=== PATIENT | female | born 1985 | race Caucasian/White ===

== ENCOUNTER 2020-08-05 09:02 | Outpatient (CLI) | payer OTHER, SELFPAY ==
--- NOTE | ~2020-08-05 | XR_ITS ---
EXAMINATION: XR chest 2V 08/05/2020 09:15 INDICATION: Cough PROCEDURE: 2 view chest COMPARISON: No prior studies for comparison. FINDINGS: The lungs are clear. The cardiomediastinal silhouette is within normal limits. There are no pleural effusions. There is no pneumothorax suspected. IMPRESSION: 1: NO ACUTE CARDIOPULMONARY DISEASE. Reviewed, dictated and finalized at location A.
--- NOTE | ~2020-08-05 | XR_ITS ---
EXAMINATION: XR hip BI wo pelvis EXAM DATE: 08/05/2020 09:14 INDICATION: M25.559 - Pain in unspecified hip, no injury. TECHNIQUE: Each hip imaged independently (separate right and also left hip) 'frog leg' and frontal p rojections for interpretation. There is no prior study for comparison. FINDINGS: No radiographic evidence of hip avascular necrosis. Hip and sacroiliac joints are unremar kable. There are no acute fractures or dislocations identified. There is no subcutaneous gas. The s oft tissue is unremarkable. There is IUD projecting over the central aspect of the pelvis. IMPRESSION: Unremarkable hips. Reviewed, dictated and finalized at location B. IMPRESSION: Unremarkable hips.
== END 2020-08-05 09:03 | disposition home or self-care (01) ==
PROVIDERS: PCP Internal Medicine; Visit Provider Nurse Practitioner
DX: R05 Cough (principal); M25.559 Pain in unspecified hip
CPT/HCPCS: 71046; 73521

== ENCOUNTER 2021-06-12 11:40 | Outpatient (CLI) | payer OTHER, SELFPAY ==
--- NOTE | ~2021-06-12 | XR_ITS ---
EXAMINATION: XR chest 2V DATE: 06/12/2021 12:02 INDICATION: Cough. TECHNIQUE: Frontal and lateral views of the chest were obtained. COMPARISON: Chest 2 views 08/05/2020 FINDINGS: The chest demonstrates clear lungs without pneumonia, pleural effusion, or pneumothorax. Th e heart size is normal. IMPRESSION: 1. No acute cardiopulmonary disease. Reviewed, dictated and finalized at location B.
== END 2021-06-12 11:41 | disposition home or self-care (01) ==
LOC: ANHIMG 11:49
PROVIDERS: PCP Internal Medicine; Visit Provider Nurse Practitioner
DX: R05.9 Cough, unspecified (principal)
CPT/HCPCS: 71046

== ENCOUNTER 2022-03-10 10:21 | Outpatient (CLI) | payer OTHER, SELFPAY ==
--- NOTE | ~2022-03-10 | US_ITS ---
Ultrasound of the right groin CLINICAL HISTORY: Lymphadenopathy TECHNIQUE: Sonographic imaging of the right groin was performed. FINDINGS: There is a somewhat prominent lymph node, with relatively thin cortex and prominent fatty h ilum, therefore not pathologic in appearance. No other abnormal mass lesion or pathologic appearing l ymph node identified. No fluid collection evident. IMPRESSION: No pathologic adenopathy evident. Prominent lymph node demonstrates normal fatty hilum and thin bala x. Reviewed, dictated and finalized at location M. PROJECT MANAGER IMPRESSION: No pathologic adenopathy evident. Prominent lymph node demonstrates normal fatt y hilum and thin cortex.
--- NOTE | ~2022-03-10 | US_ITS ---
Ultrasound of the left groin CLINICAL HISTORY: Lymphadenopathy TECHNIQUE: Sonographic imaging of the left groin was performed. FINDINGS: There are mildly prominent lymph nodes, with relatively thin cortex and prominent fatty hil a, therefore not pathologic in appearance. No other abnormal mass lesion or pathologic appearing lymp h node identified. No fluid collection evident. IMPRESSION: No pathologic adenopathy evident. Prominent lymph nodes demonstrates normal fatty hilum and thin markie ex. Reviewed, dictated and finalized at location M. FISHER IMPRESSION: No pathologic adenopathy evident. Prominent lymph nodes demonstrates normal fat ty hilum and thin cortex.
--- NOTE | ~2022-03-10 | US_ITS ---
Ultrasound of the right neck CLINICAL HISTORY: Right neck mass TECHNIQUE: Sonographic imaging was performed in the right neck at the area of palpable concern. FINDINGS: At the area of palpable concern, there is a 0.8 x 0.5 x 0.9 cm lymph node, with a fatty hil um present. No other sonographic abnormality seen at the region scanned. IMPRESSION: Minimally prominent lymph node which correlate to the palpable abnormality. This is not enlarged by s ize criteria, and maintains a normal fatty hilum, therefore this is likely a benign lymph node. Reviewed, dictated and finalized at location M. MARKER IMPRESSION: Minimally prominent lymph node which correlate to the palpable abnormality. Thi s is not enlarged by size criteria, and maintains a normal fatty hilum, therefo re this is likely a benign lymph node.
== END 2022-03-10 10:22 | disposition home or self-care (01) ==
PROVIDERS: PCP Internal Medicine; Visit Provider Nurse Practitioner
DX: R59.0 Localized enlarged lymph nodes (principal); R59.9 Enlarged lymph nodes, unspecified
CPT/HCPCS: 76536; 76882

== ENCOUNTER 2022-05-18 09:27 | Outpatient (CLI) | payer OTHER, SELFPAY ==
[2022-05-18 19:08] LABS: Alanine Aminotransferase 18 U/L (6-35); Albumin Level 4.4 g/dL (3.5-5.1); Alkaline Phosphatase 60 U/L (38-126); Anion Gap 10 mmol/L (8-16); Aspartate Amino Transferase 21 U/L (14-36); Basophils Absolute Auto 0.1 K/mm3 (0.0-0.1); Basophils Percent Auto 1.3 % (0.2-1.2); Bilirubin,Total 0.5 mg/dL (0.2-1.3); Blood Urea Nitrogen 9 mg/dL (7-17); Calcium 9.2 mg/dL (8.4-10.2); Carbon Dioxide 22 mmol/L (22-30); Chloride 106 mmol/L (98-107); Cholesterol 177 mg/dL (0-200); Eosinophils Absolute Auto 0.1 K/mm3 (0-0.3); Eosinophils Percent Auto 1.5 % (0-4.4); Estimated Glomerular Filt Rate > 60; Glucose 74 mg/dL (65-110); HDL Direct 51 mg/dL; Hematocrit 45.3 % (37.0-47.0); Hemoglobin 14.2 g/dL (12.0-15.0); Immature Granulocyte Absolute 0.02 K/mm3 (0.00-0.031); Immature Granulocyte Percent A 0.4 % (0-0.5); Lymphocytes Absolute Auto 2.01 K/mm3 (0.9-3.2); Lymphocytes Percent Auto 36.9 % (18.3-44.2); Mean Corpuscular HGB Conc 31.3 g/dl (32-36); Mean Corpuscular Hemoglobin 28.1 pg (26-34); Mean Corpuscular Volume 89.5 fl (80-100); Mean Platelet Volume 9.4 fl (7.4-10.4); Monocytes Absolute Auto 0.4 K/mm3 (0.1-0.6); Monocytes Percent Auto 7.5 % (2.6-8.5); Neutrophils Absolute Auto 2.9 K/mm3 (1.3-6.7); Neutrophils Percent Auto 52.4 % (45.5-73.1); Platelet Count Result 282 k/mm3 (150-375); Potassium 4.5 mmol/L (3.4-5.0); Red Blood Count 5.06 M/mm3 (4.2-5.4); Red Cell Distribution Width 14.2 % (11.5-14.5); Sodium 138 mmol/L (137-145); Triglycerides 59 mg/dL (<150); White Blood Count 5.4 K/mm3 (4.5-10.0)
[2022-05-18 19:19] LABS: LDL Cholesterol Direct 96 mg/dL
[2022-05-18 19:39] LABS: Erythrocyte Sedimentation Rate 5 mm/hr (0-20)
== END 2022-05-18 09:28 | disposition home or self-care (01) ==
LOC: ANHGOSHLAB 09:28
PROVIDERS: PCP Internal Medicine; Visit Provider Internal Medicine
DX: L40.50 Arthropathic psoriasis, unspecified (principal); L43.9 Lichen planus, unspecified; R59.0 Localized enlarged lymph nodes; Z13.220 Encounter for screening for lipoid disorders; Z13.29 Encounter for screening for other suspected endocrine disorder
CPT/HCPCS: 36415; 80053; 80061; 84443; 85025; 85652

== ENCOUNTER 2023-06-13 10:45 | Outpatient (CLI) | payer BC, OTHER, SELFPAY ==
[2023-06-13 11:52] LABS: Basophils Absolute Auto 0.1 K/mm3 (0.0-0.1); Basophils Percent Auto 0.8 % (0.2-1.2); Eosinophils Absolute Auto 0.1 K/mm3 (0-0.3); Eosinophils Percent Auto 1.4 % (0-4.4); Hematocrit 46.9 % (37.0-47.0); Hemoglobin 14.7 g/dL (12.0-15.0); Immature Granulocyte Absolute 0.01 K/mm3 (0.00-0.031); Immature Granulocyte Percent A 0.2 % (0-0.5); Lymphocytes Absolute Auto 1.92 K/mm3 (0.9-3.2); Lymphocytes Percent Auto 32.5 % (18.3-44.2); Mean Corpuscular HGB Conc 31.3 g/dl (32-36); Mean Corpuscular Hemoglobin 28.5 pg (26-34); Mean Corpuscular Volume 91.1 fl (80-100); Mean Platelet Volume 9.4 fl (7.4-10.4); Monocytes Absolute Auto 0.4 K/mm3 (0.1-0.6); Monocytes Percent Auto 6.8 % (2.6-8.5); Neutrophils Absolute Auto 3.5 K/mm3 (1.3-6.7); Neutrophils Percent Auto 58.3 % (45.5-73.1); Platelet Count Result 261 k/mm3 (150-375); Red Blood Count 5.15 M/mm3 (4.2-5.4); Red Cell Distribution Width 13.6 % (11.5-14.5); White Blood Count 5.9 K/mm3 (4.5-10.0)
[2023-06-13 12:02] LABS: Alanine Aminotransferase 18 U/L (6-35); Albumin Level 4.6 g/dL (3.5-5.1); Alkaline Phosphatase 61 U/L (38-126); Anion Gap 4 mmol/L (4-12); Aspartate Amino Transferase 45 U/L (14-36); Bilirubin,Total 0.5 mg/dL (0.2-1.3); Blood Urea Nitrogen 13 mg/dL (7-17); Calcium 9.7 mg/dL (8.4-10.2); Carbon Dioxide 28 mmol/L (22-30); Chloride 105 mmol/L (98-107); Cholesterol 199 mg/dL (0-200); Estimated Glomerular Filt Rate > 60; Glucose 91 mg/dL (65-110); HDL Direct 69 mg/dL; Potassium 4.3 mmol/L (3.4-5.0); Sodium 137 mmol/L (137-145); Triglycerides 75 mg/dL (<150)
[2023-06-13 12:13] LABS: LDL Cholesterol Direct 110 mg/dL
[2023-06-13 13:25] LABS: Vitamin D 25 Hydroxy 27.9 ng/mL
== END 2023-06-13 10:46 | disposition home or self-care (01) ==
PROVIDERS: PCP Internal Medicine; Visit Provider Nurse Practitioner
DX: E55.9 Vitamin D deficiency, unspecified (principal); Z13.220 Encounter for screening for lipoid disorders; Z13.29 Encounter for screening for other suspected endocrine disorder
CPT/HCPCS: 36415; 80053; 80061; 82306; 85025

== ENCOUNTER 2024-01-08 08:16 | Emergency (ER) | payer OTHER, BC, MEDICAID, SELFPAY ==
--- NOTE | ~2024-01-08 | XR_ITS ---
Right Knee Technique: AP, lateral, and sunrise views were obtained. Clinical History: Pain Findings: No fracture or dislocation is seen. Osseous alignment is anatomic. Joint spaces are preserv ed without degenerative or erosive change. Soft tissues are unremarkable. No joint effusion is seen. Impression: Unremarkable right knee radiographs. Reviewed, dictated and finalized at location . ORATIVE AIDE Impression: Unremarkable right knee radiographs.
--- NOTE | 2024-01-08 08:19 | ED.LOWEXIN ---
HPI - Extremity Injury (Lower) General Chief Complaint: Extremity Injury, Lower Stated Complaint: rt knee injury Time Seen by Provider: 01/08/24 08:18 Source: patient Mode of arrival: ambulatory Limitations: no limitations History of Present Illness HPI Narrative: Rebeca is a 38-year-old female patient presenting to the clinic today with complaints of right knee injury. She reports that she thinks she may have twisted her right knee while at work on Tuesday. She states she was pushing a heavy cart with packages on it and developed lateral and inferior pain to the right knee. Pain is worse when going down steps or walking down hill. Has been taking Aleve for the pain. Related Data Allergies Allergy/AdvReac Type Severity Reaction Status Date / Time No Known Allergies Allergy Verified 01/08/24 08:34 Review of Systems Review of Systems: Pertinent positives per HPI. Patient denies any fever, chills, rash, headache, visual changes, dizziness, cough, runny nose, sore throat, shortness of breath, chest pain, palpitations, nausea, vomiting, diarrhea, constipation, abdominal pain, or any urinary issues. [facility] Past Medical History Medical History Anxiety Arthralgia BRCA negative tested on 07/09/20 Dense breast tissue on mammogram Encounter for IUD insertion 06/23/15 Mirena insertion 08/04/20 Mirena removal/reinsertion Encounter for IUD removal 08/04/20 Mirena removal/reinsertion Osteoarthritis Psoriasis Psoriatic arthritis Screening mammogram, encounter for Tobacco abuse Viral warts Family History Family History Mother Breast cancer Lung cancer Brain cancer Other Breast cancer maternal aunt Grandparent Brain cancer Lung cancer Social History Social History Smoking packs per day: 0.5 Smoking cigarettes per day: 10.0 Smoking status: Current every day smoker Tobacco type: cigarettes Second hand tobacco smoke exposure: Yes Alcohol intake: never Substance use: current Substance use type: marijuana Other substance usage details: daily medical card Do You Feel Safe in your Home?: Yes Lack of Transportation: No Lack of Food: Never True Current Housing: I Have Housing Concerned About Future Housing: No Difficulty Paying Gas/Electric Bills: No Difficulty Paying for Meds: No Currently Unemployed: No Education: High School Diploma/GED Difficulty w/ Childcare or Family Care: No Living arrangements: with family Additional living arrangements comments: Occupation/Education: occupation Additional occupation/education comments: preloader at [employer] Gender identity (if verbalized by the patient): Female Sexual Orientation (if Verbalized by the Patient): Straight or Heterosexual Comments At the time of my signature, I reviewed and agree with the nursing past medical, surgical, social, and family history. There is no relevant family history pertinent to the patient complaint. Exam Narrative: General: Well-developed, well nourished, in no apparent distress Head: Normocephalic, atraumatic. Cardio: Regular rate and rhythm, s1 and s2 normal, no murmur appreciated. Resp: Clear to auscultation bilaterally, no rhonchi, rales, wheezing or rubs. Musculoskeletal: No deformity, mild swelling when compared to the left knee, tender to palpation over the right lateral and inferior knee, some pain with full flexion of the knee, grossly normal range of motion, no crepitus felt with flexion and extension of the knee, muscle strength strong and equal, peripheral pulse strong, no cyanosis, limping gait and station Course Course Emergency Course: Portions of this record may have been created with voice recognition software. Level of Care: Express Care Visit Vital Signs Vital signs: Vital Signs Temperature 37.1 C 01/08/24 08:36 Pulse Rate 82 01/08/24 08:36 Respiratory Rate 16 01/08/24 08:36 Blood Pressure 127/95 H 01/08/24 08:36 Pulse Oximetry 100 01/08/24 08:36 Oxygen Delivery Room Air 01/08/24 08:36 Temperature 37.1 C 01/08/24 08:36 Pulse Rate 82 01/08/24 08:36 Respiratory Rate 16 01/08/24 08:36 Blood Pressure 127/95 H 01/08/24 08:36 Pulse Oximetry 100 01/08/24 08:36 Oxygen Delivery Room Air 01/08/24 08:36 Vital signs reviewed MDM - Extremity Injury (Lower) MDM Narrative Medical decision making narrative: At the time of visit patient is resting comfortably on the exam table. Patient appears to be nontoxic. Diagnostics: X-ray the right knee was negative for any fracture or malalignment. Plan: I suspect patient has right knee sprain/acute knee pain. Prescription for Medrol Dosepak was sent to the pharmacy. Supportive measures were discussed with the patient and they voiced understanding discharge instructions and agrees to treatment plan. Return precautions reviewed Differential Diagnosis Differential diagnosis: Likely acute internal derangement of knee and other (Tibia fracture, femur fracture, lateral knee sprain, meniscus tear, osteoarthritis) Imaging Data Radiologist's impression: ITS Impressions Knee X-Ray 01/08/24 09:02 Impression: Unremarkable right knee radiographs. Discharge Plan Discharge Clinical Impression: Acute pain of right knee Knee LCL sprain Qualifiers: Encounter type: initial encounter Laterality: right Qualified Code(s): S83.421A - Sprain of lateral collateral ligament of right knee, initial encounter Patient Disposition: Home, Self-Care Condition: Stable Instructions: Antibiotic Form, Knee Sprain (ED), Knee Pain (ED) Additional Instructions: Rest, ice, elevate, and wear osmani wrap as directed Wear hinged knee brace while up walking Tylenol/motrin for pain as discussed. Gradually bear weight Take Medrol Dosepak as prescribed Follow up with your PCP if symptoms persist more than 1 week. Prescriptions: New methylprednisolone [Medrol (Saad)] 4 mg tablets,dose pack See Rx Instructions PO .COMPLEX Qty: 21 0RF Rx Instructions: orally per package directions Follow-up/Referrals: Vernon Avalos DO [Primary Care Provider] - Stand Alone Forms: Work/School Release IP Time of Disposition: 09:23 Quality NIHSS Nursing Documentation ED NIHSS nursing documentation: reviewed/agree
[2024-01-08 08:36] VITALS: BP 127/95; PULSE 82; RESP 16; TEMP 37.1; O2SAT 100
== END 2024-01-08 09:29 | disposition home or self-care (01) ==
PROVIDERS: Emergency Provider Nurse Practitioner Family; PCP Internal Medicine
DX: S83.421A Sprain of lateral collateral ligament of right knee, initial encounter (principal); X50.0XXA Overexertion from strenuous movement or load, initial encounter; Y99.0 Civilian activity done for income or pay; M19.90 Unspecified osteoarthritis, unspecified site; L40.50 Arthropathic psoriasis, unspecified; L40.9 Psoriasis, unspecified; F17.210 Nicotine dependence, cigarettes, uncomplicated; F12.90 Cannabis use, unspecified, uncomplicated
CPT/HCPCS: 73564; 99213; G0463

== ENCOUNTER 2024-05-16 15:03 | Outpatient (CLI) | payer BC, MEDICAID, SELFPAY ==
--- NOTE | ~2024-05-16 | XR_ITS ---
EXAMINATION: XR chest 2V 05/16/2024 15:12 INDICATION: Pleurodynia PROCEDURE: Two-view chest COMPARISON: 06/12/2021 FINDINGS: The lungs are clear. The cardiomediastinal silhouette is within normal limits. There are no pleural effusions. There is no pneumothorax suspected. IMPRESSION: 1: NO ACUTE CARDIOPULMONARY DISEASE. Reviewed, dictated and finalized at location A.
--- OUTSIDE RECORDS SUMMARY | 2024-05-16 16:24 | XMS_ITS | Encounter Summary ---
Author Organization [facility] Address [address] [place] [place] [address] Care Team Providers Care Slubber Machine Operator Name Role Phone Vernon Avalos DO Primary Care Provider [phone] Reason for Visit * Reason Onset Date Comments Medication Prior Auth Request 04/27/2018 Jonah self Encounter Details Date Type Department Care Team (Late st Contact Info) Description 04/27/2018 Telephone [facility] [address] [place] [address] Jade Bob Medication Prior Auth Request (Humira) Social History Tobacco Use Types Packs/Day Years Used Date Smoking Tobacco: Every Day Cigarettes 0.5 15 Smokeless Tobacco: Current Alcohol Use Standard Drinks/Week Comments No 0 (1 standard drink = 0.6 oz pur e alcohol) Sex and Gender Information Value Date Recorded Sex Assigned at Not on file Gender Identity Not on file Sexual Orientation Not on file documented as of this encounter Miscellaneous Notes * Telephone Encounter - Jade Bob - 05/24/2018 11:37 AM CDT PA was denied. The only approved antipsoriatic is acitretin. What would you like to do next? Jade Bob MA * Telephone Encounter - Jade Bob - 05/03/2018 1:53 PM CDT Fax received from [employer]. Order for Chong has been received. PA to be intiated. Jade Bob MA * Telephone Encounter - Jade Bob - 04/27/2018 4:56 PM CST Sent Chong in to intialize PA process. Will await response. Jade Bob MA ER LOADER documented in this encounter Plan of Treatment Not on file documented as of this encounter Visit Diagnoses Diagnosis Psoriasis- Primary Other psoriasis Psoriatic arthritis (HCC) Psoriatic arthropathy documented in this encounter Care Teams Slubber Machine Operator Relationship Specialty Start Date End Date Vernon Avalos DO PCP - General 03/27/18 documented as of this encounter
--- OUTSIDE RECORDS SUMMARY | 2024-05-16 16:24 | XMS_ITS | Encounter Summary ---
Author Organization [facility] Healthcare Address [address] [place] [address] Care Team Providers Care Production Control Supervisor Name Role Phone Vernon Avalos DO Unavailable [phone] Vernon Avalos DO Primary Care Provider [phone] Reason for Visit * Diagnostic Imaging (Routine) - Closed Specialty Diagnoses / Procedures Referred By Eliel t Referred To Contact Diagnoses Mass of breast, unspecified laterality Procedures Breast Imaging Screening Outside Reference Lisa Hinojosa NP [address] [facility] [place] [phone] [place] [address] Phone: tel: fax: Referral ID Status Reason Start Date Expiration Date Visits Re quested Visits Authorized [id number] Closed 01/24/2023 02/23/2024 1 1 Encounter Details Date Type Department Care Team (Late st Contact Info) Description 05/01/2018 Hospital Encounter [facility] [place] [address] Social History Tobacco Use Types Packs/Day Years Used Date Smoking Tobacco: Every Day Personal Safety Answer Date Recorded Getting School Help Needed Not on file 02/09 Comments Unknown Sex and Gender Information Value Date Recorded Sex Assigned at Not on file Legal Sex Female 11:53 AM MACHINIST SUPERVISOR Gender Identity Not on file Sexual [...] CDT) Impressions [facility] - 01/24/2023 1:35 PM MACHINIST SUPERVISOR These images are for Reference purposes only and have not been reviewed by [facility] Radiology. There will be no report generated by a [facility] Radiologist. Narrative [facility] - 01/24/2023 1:35 PM MACHINIST SUPERVISOR EXAMINATION: Images For Reference Purposes Only us Lisa Hinojosa PRESS SETUP OPERATOR IMG MAMMO PROCEDURES Final Result [facility] documented in this encounter Visit Diagnoses Not on filedocumented in this encounter Care Teams Production Control Supervisor Relationship Specialty Start Date End Date Vernon Avalos DO PCP - General 07/20/16 Vernon Avalos DO 06/22/16 documented as of this encounter
--- OUTSIDE RECORDS SUMMARY | 2024-05-16 16:24 | XMS_ITS | Clinical Summary ---
Author Organization [facility] Address [address] [place] [address] Phone Care Team Providers Care Enrobing Machine Corder Name Role Phone JacquelineVernon lazaro Joon Primary Care Provider Social History Tobacco Use Types Packs/Day Years Used Date Smoking Tobacco: Never Assessed Comments Unknown Sex and Gender Information Value Date Recorded Sex Assigned at Not on file Legal Sex Female 11:35 PM CDT Gender Identity Not on file Sexual Orientation Not on file Plan of Treatment Health Maintenance Due Date Last Done Comments TdaP Immunization 1983 Hepatitis B Immunization (1 of 3 - 19+ 3-dose series) 08/08/2002 Pap Smear 08/08/2004 Cervical Cancer Screening (CCS) 08/08/2013 HPV/Cotest 08/08/2013 Discussion re Starting/Frequ ency of Mammograms 2023 Influenza Immunization (#1) 2023 SARS-COV-2 Immunization ( season) 2023 Respiratory Syncytial Virus (RSV) Immunization (Adult) (1 - 1-dose 75+ series) 08/08/2058 Hepatitis C Virus (HCV) Screening Completed 018 Meningococcal Immunization (ACWY) Aged Out No longer eligible based on patient's age to complete this topic Pneumococcal Immunization Combined Aged Out No longer eligible based on patient's age to complete this topic Rotavirus Immunization Aged Out No lo nger eligible based on patient's age to complete this topic Procedures Procedure Name Priority Date/Time Associated Diagnosis Comments HEPATITIS C ANTIBODY Routine 03/18/2017 11:15 AM MANAGER LOGISTIC Multiple joint pain from Last 3 Months or Most Recently Relevant to Health Maintenance Results * HEPATITIS C ANTIBODY (03/18/2017 11:15 AM MANAGER LOGISTIC) hepatitis C antibody 0.12 <1 S/CO 03/18/2017 9:33 PM MANAGER LOGISTIC [facility] Comment: Signal/Cutoff ratio < 0.79 is Nondetected Signal/Cutoff ratio 0.80-0.99 is Grayzone Signal/Cutoff ratio > 0.99 is Detected Supplemental assays are recommended if signal/cutoff ratio is >/=1.00. Signal/cutoff ratio result >/= 5.00 is 97% predictive of positivity for recombinant immunoblot assay (RIBA) and will be reported to the [place] Department of Public Health as required. Blood specimen (specimen) Venipuncture / Unknown 03/18/2017 11:15 AM MANAGER LOGISTIC 03/18/2017 1:27 PM MANAGER LOGISTIC us Vernon Avalos DO CHEMISTRY ORDERABLES Fi nal Result [facility] [address] [place] [address], [place] from Last 3 Months or Most Recently Relevant to Health Maintenance Care Teams Enrobing Machine Corder Relationship Specialty Start Date End Date Vernon Avalos DO [address] [facility] [place] [address] PCP - General Internal Medicine 03/18/17
--- OUTSIDE RECORDS SUMMARY | 2024-05-16 16:24 | XMS_ITS | Clinical Summary ---
Author Organization [facility] Address [address] [facility] [place] [address] Care Team Providers Care Analyst Competitive Intelligence Name Role Phone Vernon Avalos DO Primary Care Provider [phone] Source Comments [facility],non-owned Affiliates and Associated Physician Practices is amultiple site organization consisting of ambulatory clinics and hospital sitesin [place], [place], [place] and [place]. This disclosure is being madepursuant to the Care Everywhere program and may not contain all information available regarding this patient. Last updated 17.[facility] Allergies No known active allergies Medications * Be aware that medications may not be up to date on this document. Alwaysverify current medications with the patient. Medication Sig Dispensed Refills Start Date End Date Status betamethasone dipropionate (DIPROSONE) 0.05 % ointmentIndications :Psoriasis vulgaris Apply to trunk/extremities 1-2 times daily. 30 DS. 45 g 11 04/11/2018 Active selenium sulfide (SELSUN) 2.5 % lotionIndications:P soriasis vulgaris Wash into scalp and allow to sit for 3 minutes before rinsing. 30 DS. 120 mL 11 04/11/2018 Active Additional Information Patient not taking.Reported on 08/17/2018 folic acid (FOLVITE) 1 MG tabletIndications:O ther psoriasis Take 1 tablet by mouth once daily Take 1 daily except the day you take methotrexate 90 tablet 3 08/17/2018 Active methotrexate 2.5 MG tabletIndications:P soriasis Take 6 tablets by mouth every 7 days Reasons: Psoriasis 24 tablet 2 08/17/2018 Active Active Problems Problem Noted Date Diagnosed Date Abnormal quad screen 12/03/2014 Encounter for supervision of other normal pregna ncy 12/03/2014 Overview (12/29/2014): Family History Medical History Relation Name Comments Psoriasis Maternal Grandfather Psoriasis Mother Relation Name Status Comments Maternal Grandfather Mother Social History Tobacco Use Types Packs/Day Years Used Date Smoking Tobacco: Every Day Cigarettes 0.5 15 Smokeless Tobacco: Current Tobacco Cessation:Ready to Q uit: Yes Alcohol Use Standard Drinks/Week Comments No 0 (1 standard drink = 0.6 oz pur e alcohol) Sex and Gender Information Value Date Recorded Sex Assigned at Not on file Gender Identity Not on file Sexual Orientation Not on file Plan of Treatment Health Maintenance Due Date Last Done Comments LIPID TESTING 1983 MAMMOGRAM 1983 PAP SMEAR 1983 HIV SCREENING 08/08/1998 DTAP/TDAP/TD VACCINES (1 - Tdap) 08/08/2002 HEPATITIS B VACCINE (1 of 3 - 19+ 3-dose series) 08/08/2002 COVID-19 VACCINE (2023-2 5 season) 2023 INFLUENZA VACCINE (#1) 2023 DEPRESSION SCREENING 02/22/2024 ZOSTER VACCINE (1 of 2) 08/08/2033 HEPATITIS C SCREENING Completed 05/25/2018 HIB VACCINE Aged Out No longer eligi ble based on patient's age to complete this topic HPV VACCINE Aged Out No longer eligi ble based on patient's age to complete this topic MENINGOCOCCAL (Group B) VACC INE SHARED DECISION-MAKING Aged Out No longer eligibl e based on patient's age to complete this topic MENINGOCOCCAL GROUPS A/C/Y/W VACCINE Aged Out No longer eligible b ased on patient's age to complete this topic PNEUMOCOCCAL VACCINE Aged Out No long er eligible based on patient's age to complete this topic Procedures Procedure Name Priority Date/Time Associated Diagnosis Comments HEPATITIS C AB W/RFLX TO HCV RNA QN PCR 05/25/2018 1:01 PM CDT from Last 3 Months or Most Recently Relevant to Health Maintenance Results * HEPATITIS C AB W/RFLX TO HCV RNA QN PCR (05/25/2018 1:01 PM CDT) Hepatitis C Antibody NON-REACTI VE NON-REACT [facility] Signal to Cut-Off 0.03 <1.00 [facility] Comment: HCV antibody was non-reactive. There is no laboratory evidence of HCV infection. In most cases, no further action is required. However, if recent HCV exposure is suspected, a test for HCV RNA (test code 15392) is suggested. For additional information please refer to http://education.Twined/faq/RDN14z4 (This link is being provided for informational/ educational purposes only.) Test Performed at: [facility] [id number] [place] [address] ROMEO WAGNER DO,MPH 05/25/2018 1:01 PM CDT 05/25/2018 1:01 PM CDT Berta Giron MD LAB - CHEMISTRY OR DERABLES [facility] [address] [place] [address] from Last 3 Months or Most Recently Relevant to Health Maintenance Care Teams Analyst Competitive Intelligence Relationship Specialty Start Date End Date Vernon Avalos DO [facility] - General 03/27/18
--- OUTSIDE RECORDS SUMMARY | 2024-05-16 16:24 | XMS_ITS | Clinical Summary ---
Author Organization [facility] Address [address] [place] [address] Care Team Providers Care Employment Supervisor Name Role Phone Vernon Avalos DO Unavailable [phone] Vernon Avalos DO Primary Care Provider [phone] Kenneth Pineda MD Unavailable [phone] Allergies No known active allergies Medications No known medications Active Problems No known active problems Surgical History Surgery Date Site/Laterality Comments BREAST BIOPSY 04/04/2023 Right Medical History Medical History Date Comments Psoriasis vulgaris Plaque psoria sis - (Added by Conv) Family History Medical History Relation Name Comments Cancer Maternal Grandmother Ping Duran Breast cancer Mother Madison Almeida Family hist ory of malignant neoplasm of breast - (Added by Conv) Cancer Mother Madison Almeida Cancer Mother's Sister Kathrine Clinton Relation Name Status Comments Maternal Grandmother Ping Duran Mother Madison Almeida Mother's Sister Kathrine Clinton Social History Tobacco Use Types Packs/Day Years Used Date Smoking Tobacco: Every Day Tobacco Cessation:Ready to Q uit: Not Asked; Counseling Given: Not Answered Personal Safety Answer Date Recorded Getting School Help Needed Not on file 02/09 Comments Unknown Sex and Gender Information Value Date Recorded Sex Assigned at Not on file Legal Sex Female 11:53 AM MECHANICAL UNIT REPAIRER Gender Identity Not on file Sexual Orientation Not on file Obstetrics History Last Filed Vital Signs Vital Sign Reading Time Taken Comments Blood Pressure 113/75 04/12/2017 8:03 AM MECHANICAL UNIT REPAIRER Pulse 85 04/12/2017 8:03 AM MECHANICAL UNIT REPAIRER Temperature - - Respiratory Rate - - Oxygen Saturation - - Inhaled Oxygen Concentration - - Weight 56.2 kg (123 lb 14.4 oz) 11/02/2023 9:59 AM CDT Height 152.4 cm (5') 11/02/2023 9:59 AM CDT Body Mass Index 24.2 11/02/2023 9:59 AM CDT Plan of Treatment Health Maintenance Due Date Last Done Comments Cervical Cancer Screening 1983 Depression Screening 1983 Hepatitis C Screening 1983 DTaP/Tdap/Td Vaccine (1 - Tdap) 08/08/1994 Varicella Vaccines (1 of 2 - 13+ 2-dose series) 08/08/1996 Hepatitis B Screening 08/08/2001 Regular Well Visit/Exam 18-64 08/08/2001 Pneumococcal vaccine <65 (1 of 2 - PCV) 08/08/2002 Covid-19 Vaccine (3 - 2023-2 5 season) 2023 09/24/2020, 09/03/2020 Influenza Vaccine (#1) 2023 03/03/2016 Breast Cancer Screening-Mammogram 11/01/2024 11/02/2023 HPV Vaccines Aged Out No longer eligi ble based on patient's age to complete this topic Medical Devices Implanted Type Area Gripper Attacher Device Identifier Shelf Expiration Date Model / Serial / Lot Bard Peripheral Vascular Ultraclip Bard 17ga 10cm 2 Trigger Permanent Ultrasound [id number] - [id number] Implanted:Qty: 1 on 04/04/2023 at [facility] [employer] [id number] / / Procedures Procedure Name Priority Date/Time Associated Diagnosis Comments SCREENING MAMMOGRAM BILATERAL W LAUREL Schedule Routine, Read Routine (OP Routine) 11/02/2023 11:54 AM CDT Mass of breast, unspecified laterality Screening mammogram for breast cancer from Last 3 Months or Most Recently Relevant to Health Maintenance Results * Screening Mammogram Bilateral W [place] (11/02/2023 11:54 AM CDT) Anatomical Region Laterality Modality Breast Bilateral Mammography Narrative 11/02/2023 12:36 PM CDT Mammogram Technique: Bilateral Digital Breast Tomosynthesis, Bilateral C-view 2D Screening mammogram. Views obtained: bilateral craniocaudal and bilateral mediolateral oblique. Computer Aided Detection was performed. Mammogram Findings: No prior imaging studies are available for comparison. The breasts are extremely dense, which lowers the sensitivity of mammography. There is no suspicious abnormality in either breast. Impression: There is no mammographic evidence of malignancy. Annual screening mammography is recommended. Consider breast MRI for supplemental screening given the patient's extremely dense breast tissue. OVERALL FINAL ASSESSMENT: BI-RADS CATEGORY 1: Negative. Procedure Note Nicole Valle MD - 11/02/2023 Mammogram Technique: Bilateral Digital Breast Tomosynthesis, Bilateral C-view 2D Screening mammogram. Views obtained: bilateral craniocaudal and bilateral mediolateral oblique. Computer Aided Detection was performed. Mammogram Findings: No prior imaging studies are available for comparison. The breasts are extremely dense, which lowers the sensitivity of mammography. There is no suspicious abnormality in either breast. Impression: There is no mammographic evidence of malignancy. Annual screening mammography is recommended. Consider breast MRI for supplemental screening given the patient's extremely dense breasttissue. OVERALL FINAL ASSESSMENT: BI-RADS CATEGORY 1: Negative. Lisa Hinojosa NP IMG MAMMO PROCEDURES Final Result from Last 3 Months or Most Recently Relevant to [place] [address] [employer] [facility] IDPA Care Teams Employment Supervisor Relationship Specialty Start Date End Date Vernon Avalos DO PCP - General 07/20/16 Vernon Avalos DO 06/22/16 Kenneth Pineda MD [address] [place] [address] Referring Physician Obstetrics and Gynecology 12/20/22
--- OUTSIDE RECORDS SUMMARY | 2024-05-16 16:24 | XMS_ITS | Encounter Summary ---
Author Organization [facility] Healthcare Address [address] [place] [address] Care Team Providers Care Supervisor Inspection Department Name Role Phone Vernon Avalos DO Unavailable [phone] Vernon Avalos DO Primary Care Provider [phone] Reason for Visit * Diagnostic Imaging (Routine) - Closed Specialty Diagnoses / Procedures Referred By Eliel t Referred To Contact Diagnoses Mass of breast, unspecified laterality Procedures Breast Imaging Screening Outside Reference Lisa Hinojosa NP [address] [facility] [id number] [place] [address] Phone: tel: fax: Referral ID Status Reason Start Date Expiration Date Visits Re quested Visits Authorized [id number] Closed 01/24/2023 02/23/2024 1 1 Encounter Details Date Type Department Care Team (Late st Contact Info) Description 08/01/2019 Hospital Encounter [facility] [place] [address] Social History Tobacco Use Types Packs/Day Years Used Date Smoking Tobacco: Every Day Personal Safety Answer Date Recorded Getting School Help Needed Not on file 02/09 Comments Unknown Sex and Gender Information Value Date Recorded Sex Assigned at Not on file Legal Sex Female 11:53 AM TUNNEL HEADING SUPERVISOR Gender Identity Not on file Sexual [...] CDT) Impressions [facility] - 01/24/2023 1:39 PM TUNNEL HEADING SUPERVISOR These images are for Reference purposes only and have not been reviewed by [facility]iology. There will be no report generated by a [facility] Radiologist. Narrative [facility] - 01/24/2023 1:39 PM TUNNEL HEADING SUPERVISOR EXAMINATION: Images For Reference Purposes Only us Lisa Hinojosa NP IMG MAMMO PROCEDURES Final Result [facility] documented in this encounter Visit Diagnoses Not on filedocumented in this encounter Care Teams Supervisor Inspection Department Relationship Specialty Start Date End Date Vernon Avalos DO PCP - General 07/20/16 Vernon Avalos DO 06/22/16 documented as of this encounter
--- OUTSIDE RECORDS SUMMARY | 2024-05-16 16:24 | XMS_ITS | Referral Summary ---
Author Organization [facility] Healthcare Address [address] [place] [address] Care Team Providers Care Traveling Sales Representative Name Role Phone Vernon Avalos DO Unavailable [phone] Vernon Avalos DO Primary Care Provider [phone] Kenneth Pineda MD Unavailable [phone] Allergies No known active allergies Medications No known medications Active Problems No known active problems Social History Tobacco Use Types Packs/Day Years Used Date Smoking Tobacco: Every Day Tobacco Cessation:Ready to Q uit: Not Asked; Counseling Given: Not Answered Personal Safety Answer Date Recorded Getting School Help Needed Not on file 02/09 Comments Unknown Sex and Gender Information Value Date Recorded Sex Assigned at Not on file Legal Sex Female 11:53 AM CUSTOMER SUPPORT ANALYST Gender Identity Not on file Sexual Orientation Not on file Last Filed Vital Signs Vital Sign Reading Time Taken Comments Blood Pressure 113/75 04/12/2017 8:03 AM CUSTOMER SUPPORT ANALYST Pulse 85 04/12/2017 8:03 AM CUSTOMER SUPPORT ANALYST Temperature - - Respiratory Rate - - Oxygen Saturation - - Inhaled Oxygen Concentration - - Weight 56.2 kg (123 lb 14.4 oz) 11/02/2023 9:59 AM CDT Height 152.4 cm (5') 11/02/2023 9:59 AM CDT Body Mass Index 24.2 11/02/2023 9:59 AM CDT Plan of Treatment Not on file Medical Devices Implanted Type Area Cable Weaver Device Identifier Shelf Expiration Date Model / Serial / Lot Bard Peripheral Vascular Ultraclip Bard 17ga 10cm 2 Trigger Permanent Ultrasound [id number] - [id number] Implanted:Qty: 1 on 04/04/2023 at [facility] [employer] [id number] / / Procedures Procedure Name Priority Date/Time [...] Most Recently Relevant to Health Maintenance Insurance [place] ID[place] [employer] [place], [place] Care Teams Traveling Sales Representative Relationship Specialty Start Date End Date Vernon Avalos DO PCP - General 07/20/16 Vernon Avalos DO 06/22/16 Kenneth Pineda MD [address] [facility] [address] [place] [address] Referring Physician Obstetrics and Gynecology 12/20/22
--- OUTSIDE RECORDS SUMMARY | 2024-05-16 16:24 | XMS_ITS | Encounter Summary ---
Author Organization [facility] Address [address] [facility] [place] [address] Care Team Providers Care Vessel Operator Name Role Phone Vernon Avalos DO Primary Care Provider [phone] Reason for Visit * Reason Onset Date Comments Medication Problem 09/05/2018 Encounter Details Date Type Department Care Team (Late st Contact Info) Description 09/05/2018 Telephone [facility] [address] [place] [address] Edis Patrick MD [address] [place] [address] Medication Problem Social History Tobacco Use Types Packs/Day Years [...] encounter Miscellaneous Notes * Telephone Encounter - Edis Patrick MD - 09/06/2018 12:07 PM CDT Spoke w/ pt. Having joint pain, MCCLURE, fatigue x 1 month. I discussed that her joint pain is likely 2/2 PsA (as discussed by Dr. Samano at last visit). Her other symptoms may be MTX related, but her labsin July were reassuring. Advised she f/u with rheum as scheduled. Cont MTX as I am reluctant to decrease the dose while she is having such severe joint pain. If other symptoms not tolerable would like her to call me. F/u with me in 1-2 months. Likely will need biologic therapy. Edis Patrick M.D. PGY-4 dermatology resident * Telephone Encounter - Edis Patrick MD - 09/05/2018 4:07 PM CDT Left VM for patient. Will try again later. Edis Patrick M.D. PGY-4 dermatology resident * Telephone Encounter - Myra Mo - 09/05/2018 9:06 AM CDT Pt called and states that the methotrexate 2.5 MG tablet is making her joints hurt and making her tired and not feel normal and is wondering if she can start to taper off this med. Please advise. documented in this encounter Plan of Treatment Not on file documented as of this encounter Visit Diagnoses Not on filedocumented in this encounter Care Teams Vessel Operator Relationship Specialty Start Date End Date Vernon Avalos DO PCP - General 03/27/18 documented as of this encounter
== END 2024-05-16 15:04 | disposition home or self-care (01) ==
LOC: ANHASCIMG 15:03
PROVIDERS: PCP Internal Medicine; Visit Provider Nurse Practitioner
DX: R07.81 Pleurodynia (principal)
CPT/HCPCS: 71046

== ENCOUNTER 2024-12-24 10:06 | Outpatient (CLI) | payer BC, SELFPAY ==
--- OUTSIDE RECORDS SUMMARY | 2018-04-30 23:00 | XMS_ITS | Encounter Summary ---
Author Organization [facility] Healthcare Address [address] [place] [address] Care Team Providers Care Functional Mental Disability Teacher Name Role Phone Vernon Avalos DO Unavailable [phone] Vernon Avalos DO Primary Care Provider Reason for Visit * Diagnostic Imaging (Routine) - Closed Specialty Diagnoses / Procedures Referred By Eliel mcgregor Referred To Contact Diagnoses Mass of breast, unspecified laterality Procedures Breast Imaging Screening Outside Reference Lisa Hinojosa NP [address] [facility] [place] [phone] [place] [address] Phone: tel: fax: Referral ID Status Reason Start Date Expiration Date Visits Re quested Visits Authorized [id number] Closed 01/24/2023 02/23/2024 1 1 Encounter Details Date Type Department Care Team (Late st Contact Info) Description 05/01/2018 Hospital Encounter [facility] [address] [place] [id number] Social History Tobacco Use Types Packs/Day Years Used Date Smoking Tobacco: Every Day Comments No Sex and Gender Information Value Date Recorded Sex Assigned at Not on file Legal Sex Female 11:53 AM INSTRUMENT MAINTENANCE SUPERVISOR Gender Identity Not on file Sexual Orientation Not on file documented as of this encounter Plan of Treatment Not on file documented as of this encounter Procedures Procedure Name Priority Date/Time Associated Diagnosis Comments BREAST IMAGING MG SCREENING OUTSIDE REFERENCE Routine 05/01/2018 12:00 AM CDT Mass of breast, unspecified laterality documented in this encounter Results * Breast Imaging Screening Outside Reference (05/01/2018 12:00 AM CDT) Impressions [facility] - 01/24/2023 1:35 PM INSTRUMENT MAINTENANCE SUPERVISOR These images are for Reference purposes only and have not been reviewed by [facility]iology. There will be no report generated by a [facility] Radiologist. Narrative [facility] - 01/24/2023 1:35 PM INSTRUMENT MAINTENANCE SUPERVISOR EXAMINATION: Images For Reference Purposes Only us Lisa Hinojosa SMALL MACHINE BINDERY OPERATOR IMG MAMMO PROCEDURES Final Result [facility] documented in this encounter Visit Diagnoses Not on filedocumented in this encounter Care Teams Functional Mental Disability Teacher Relationship Specialty Start Date End Date Vernon Avalos DO PCP - General 07/20/16 Vernon Avalos DO 06/22/16 documented as of this encounter
--- OUTSIDE RECORDS SUMMARY | 2019-07-31 23:00 | XMS_ITS | Encounter Summary ---
Author Organization [facility] Healthcare Address [address] [place] [address] Care Team Providers Care Switch Box Installer Name Role Phone Vernon Avalos DO Unavailable [phone] Vernon Avalos DO Primary Care Provider Reason for Visit * Diagnostic Imaging (Routine) - Closed Specialty Diagnoses / Procedures Referred By Eliel mcgregor Referred To Contact Diagnoses Mass of breast, unspecified laterality Procedures Breast Imaging Screening Outside Reference Lisa Hinojosa NP [address] [facility] [place] [phone] [place] [address] Phone: tel: fax: Referral ID Status Reason Start Date Expiration Date Visits Re quested Visits Authorized [id number] Closed 01/24/2023 02/23/2024 1 1 Encounter Details Date Type Department Care Team (Late st Contact Info) Description 08/01/2019 Hospital Encounter [facility] Radiology [facility] [address] [place] [id number] Social History Tobacco Use Types Packs/Day Years Used Date Smoking Tobacco: Every Day Comments No Sex and Gender Information Value Date Recorded Sex Assigned at Not on file Legal Sex Female 11:53 AM SKIN LIFTER BACON Gender Identity Not on file Sexual Orientation Not on file documented as of this encounter Plan of Treatment Not on file documented as of this encounter Procedures Procedure Name Priority Date/Time Associated Diagnosis Comments BREAST IMAGING MG SCREENING OUTSIDE REFERENCE Routine 08/01/2019 12:00 AM CDT Mass of breast, unspecified laterality documented in this encounter Results * Breast Imaging Screening Outside Reference (08/01/2019 12:00 AM CDT) Impressions [facility] - 01/24/2023 1:39 PM SKIN LIFTER BACON These images are for Reference purposes only and have not been reviewed by [facility] Radiology. There will be no report generated by a [facility] Radiologist. Narrative [facility] - 01/24/2023 1:39 PM SKIN LIFTER BACON EXAMINATION: Images For Reference Purposes Only us Lisa Hinojosa BLUEPRINT MAKER IMG MAMMO PROCEDURES Final Result [facility] documented in this encounter Visit Diagnoses Not on filedocumented in this encounter Care Teams Switch Box Installer Relationship Specialty Start Date End Date Vernon Avalos DO PCP - General 07/20/16 Vernon Avalos DO 06/22/16 documented as of this encounter
--- OUTSIDE RECORDS SUMMARY | 2024-12-24 11:04 | XMS_ITS | Clinical Summary ---
Author Organization [facility] Address [address] [place] [address] Phone Care Team Providers Care Hydramatic Specialist Name Role Phone KajalVernon rodarte Joon Primary Care Provider Social History Tobacco [...] 19+ 3-dose series) 08/08/2002 Pap Smear 08/08/2004 Human Papillomavirus (HPV) Immunization (1 - 3-dose SCDM series) 08/08/2010 Cervical Cancer Screening (CCS) 08/08/2013 HPV/Cotest 08/08/2013 Influenza Immunization (#1) 2024 SARS-COV-2 Immunization ( season) 2024 Respiratory Syncytial Virus (RSV) Immunization (Adult) (1 [...] HEPATITIS C ANTIBODY Routine 03/18/2017 11:15 AM ENGRAVER RUBBER Multiple joint pain from Last 3 Months or Most Recently Relevant to Health Maintenance Results * HEPATITIS C ANTIBODY (03/18/2017 11:15 AM ENGRAVER RUBBER) hepatitis C antibody 0.12 <1 S/CO 03/18/2017 9:33 PM ENGRAVER RUBBER [facility] Comment: Signal/Cutoff ratio < 0.79 is Nondetected Signal/Cutoff ratio 0.80-0.99 is Grayzone Signal/Cutoff ratio > 0.99 is Detected Supplemental assays are recommended if signal/cutoff ratio is >/=1.00. Signal/cutoff ratio result >/= 5.00 is 97% predictive of positivity for recombinant immunoblot assay (RIBA) and will be reported to the [place] [facility] as required. Blood specimen (specimen) Venipuncture / Unknown 03/18/2017 11:15 AM ENGRAVER RUBBER 03/18/2017 1:27 PM ENGRAVER RUBBER us Vernon Avalos DO CHEMISTRY ORDERABLES Fi nal Result [facility] [address] [place] [address], [place] from Last 3 Months or Most Recently Relevant to Health Maintenance Care Teams Hydramatic Specialist Relationship Specialty Start Date End Date Vernon Avalos DO [address] [facility] [place], [place] [id number] PCP - General Internal Medicine 03/18/17
--- OUTSIDE RECORDS SUMMARY | 2024-12-24 11:04 | XMS_ITS | Encounter Summary ---
Author Organization [facility] Address [address] [place] [address] Care Team Providers Care Ophthalmology Technician Name Role Phone Vernon Avalos DO Primary Care Provider [phone] Reason for Visit * Reason Onset Date Comments Medication Prior Auth Request 04/27/2018 Jonah self Encounter Details Date Type Department Care Team (Late st Contact Info) Description 04/27/2018 Telephone [facility] [address] [place] [address] Jade Bob Medication Prior Auth Request (Humira) Social History Tobacco Use Types Packs/Day Years Used Date Smoking Tobacco: Every Day Cigarettes 0.5 15 Smokeless Tobacco: Current Alcohol Use Standard Drinks/Week Comments No 0 (1 standard drink = 0.6 oz pur e alcohol) Comments No Sex and Gender Information Value Date Recorded Sex Assigned at Not on file Legal Sex Female 11:01 AM CDT Gender Identity Not on file Sexual Orientation Not on file documented as of this encounter Miscellaneous Notes * Telephone Encounter - Jade Bob - 05/24/2018 11:37 AM CDT PA was denied. The only approved antipsoriatic is acitretin. What would you like to do next? Jade Bob MA * Telephone Encounter - Jade Bob - 05/03/2018 1:53 PM CDT Fax received from [facility]. Order for Chong has been received. PA to be intiated. Jade Bob MA * Telephone Encounter - Jade Bob - 04/27/2018 4:56 PM CST Sent Chong in to intialize PA process. Will await response. Jade Bob MA RIALS ENGINEERING TECHNICIAN documented in this encounter Plan of Treatment Not on file documented as of this encounter Visit Diagnoses Diagnosis Psoriasis- Primary Other psoriasis Psoriatic arthritis (HCC) Psoriatic arthropathy documented in this encounter Care Teams Ophthalmology Technician Relationship Specialty Start Date End Date Vernon Avalos DO PCP - General 03/27/18 documented as of this encounter
--- OUTSIDE RECORDS SUMMARY | 2024-12-24 11:04 | XMS_ITS | Clinical Summary ---
Author Organization [facility] Healthcare Address [address] [place] [address] Care Team Providers Care Packing Inspector Name Role Phone Vernon Avalos DO Unavailable [phone] Vernon Avalos DO Primary Care Provider Kenneth Pineda MD Unavailable [phone] Allergies No known active allergies Medications No known medications Active Problems No known active problems Encounters Date Type Department Care Team Description 12/06/2024 Results Follow-Up [facility] Medicine Surgery [address] [place] [id number] Minda Gaytan PA Screening Mammogram Bilateral [place] 12/05/2024 2:30 PM CDT - 12/05/2024 11:59 PM CDT Hospital Encounter [facility] - Breast Imaging [address] [place] [id number] Abnormal mammogram Discharge Disposition: Discharge to home or self care 12/05/2024 2:15 PM CDT Office Visit [facility] Medicine Surgery [address] [place] [id number] Minda Gaytan PA Extremely dense tissue of both breasts on mammography (Primary Dx); Encounter for screening mammogram for malignant neoplasm of breast from Last 3 Months Immunizations Immunization Administration Dates Next Due Influenza, Trivalent, Preservative Free, Intramu scular 03/03/2016 Surgical History Surgery Date Site/Laterality Comments BREAST BIOPSY 04/04/2023 Right Benign Medical History Medical History Date Comments Psoriasis vulgaris Plaque psoria sis - (Added by TW Conv) Family History Medical History Relation Name Comments Cancer Maternal Grandmother Ping Duran Breast cancer Mother Madison Almeida Family hist ory of malignant neoplasm of breast - (Added by TW Conv) Cancer Mother Madison Almeida Breast cancer Mother's Sister Kathrine Clinton Relation Name Status Comments Maternal Grandmother Ping Duran Mother Madison Almeida Mother's Sister Kathrine Clinton Social History Tobacco Use Types Packs/Day Years Used Date Smoking Tobacco: Every Day Tobacco Cessation:Ready to Q uit: Not Asked; Counseling Given: Not Answered Comments No Sex and Gender Information Value Date Recorded Sex Assigned at Not on file Legal Sex Female 11:53 AM PHARMACOLOGY PROFESSOR Gender Identity Not on file Sexual Orientation Not on file Obstetrics History Para Term AB IAB SAB Ectopic Multiple Livin g Live Births 5 3 Date Outcome GA Total Labor Labor/2nd/3rd Weight Sex Type Anes PTL Lizabeth A1 A5 Name Clin Last Filed Vital Signs Vital Sign Reading Time Taken Comments Blood Pressure 113/75 04/12/2017 8:03 AM PHARMACOLOGY PROFESSOR Pulse 85 04/12/2017 8:03 AM PHARMACOLOGY PROFESSOR Temperature - - Respiratory Rate - - Oxygen Saturation - - Inhaled Oxygen Concentration - - Weight 56.1 kg (123 lb 9.6 oz) 12/05/2024 2:34 P M CDT Height 152.4 cm (5') 12/05/2024 2:34 PM CDT Body Mass Index 24.14 12/05/2024 2:34 PM CDT Plan of Treatment Health Maintenance Due Date Last Done Comments Cervical Cancer Screening 1983 Depression Screening 1983 Hepatitis C Screening 1983 DTaP/Tdap/Td Vaccine (1 - Tdap) 08/08/1994 Varicella Vaccines (1 of 2 - 13+ 2-dose series) 08/08/1996 Hepatitis B Screening 08/08/2001 Regular Well Visit/Exam 18-64 08/08/2001 Pneumococcal vaccine <65 (1 of 2 - PCV) 08/08/2002 HPV Vaccines (1 - 3-dose SCDM series) 08/08/2010 Covid-19 Vaccine (3 - season) 10/22/202405/2020, 09/03/2020 Influenza Vaccine (#1) 2024 03/03/2016 Breast Cancer Screening-Mammogram 12/05/2025 025, 11/02/2023 Medical Devices Implanted Type Area Sterilizer Operator Device Identifier Shelf Expiration Date Model / Serial / Lot Bard Peripheral Vascular Ultraclip Bard 17ga 10cm 2 Trigger Permanent Ultrasound [id number] - [id number] Implanted:Qty: 1 on 04/04/2023 at [facility] [employer] Peripheral Vascular [id number] / / Procedures Procedure Name Priority Date/Time Associated Diagnosis Comments SCREENING MAMMOGRAM BILATERAL W LAUREL Schedule Routine, Read Routine (OP Routine) 12/05/2024 3:09 PM CDT Abnormal mammogram from Last 3 Months Results * Screening Mammogram Bilateral W [place] (12/05/2024 3:09 PM CDT) Anatomical Region Laterality Modality Breast Bilateral Mammography Impressions 12/06/2024 2:46 PM CDT Bilateral No evidence of malignancy in either breast. OVERALL BI-RADS FINAL ASSESSMENT: 1 - Negative RECOMMENDATION: Recommend bilateral annual screening mammography. Consider supplemental screening with breast MRI every 1-2 years given extremely dense breast tissue. If breast MRI cannot be performed, consider contrast-enhanced mammography as an alternative. Narrative 12/06/2024 2:46 PM CDT EXAMINATION: Screening Mammogram Bilateral W Laurel: 12/05/2024 COMPARISON: Relevant prior studies available at the time of interpretation were reviewed, including the most recent mammogram on: 11/02/2023. TECHNIQUE: Mammography was performed with 2D and 3D digital breast tomosynthesis (DBT) images. CAD was utilized. BREAST PARENCHYMAL COMPOSITION: The breasts are extremely dense, which lowers the sensitivity of mammography. FINDINGS: Bilateral There is no suspicious mass, calcification, or architectural distortion in either breast. Kelsie Zepeda MD IMG MAMMO PROCEDURES Fin al Result from Last [address] [place], [place] [employer] [place] [address] [place] [employer] Care Teams Packing Inspector Relationship Specialty Start Date End Date Vernon Avalos DO PCP - General 07/20/16 Vernon Avalos DO 06/22/16 Kenneth Pineda MD [address] [place] [address] Referring Physician Obstetrics and Gynecology 12/20/22
--- OUTSIDE RECORDS SUMMARY | 2024-12-24 11:04 | XMS_ITS | Encounter Summary ---
Author Organization [facility] Address [address] [place] [address] Care Team Providers Care Cement Finishing Supervisor Name Role Phone Vernon Avalos DO Primary Care Provider [phone] Reason for Visit * Reason Onset Date Comments Medication Problem 09/05/2018 Encounter Details Date Type Department Care Team (Late st Contact Info) Description 09/05/2018 Telephone [facility] Dermatology [address] [place] [address] Edis Patrick MD [address] [place] [address] Medication Problem Social History Tobacco Use Types [...] on filedocumented in this encounter Care Teams Cement Finishing Supervisor Relationship Specialty Start Date End Date Vernon Avalos DO PCP - General 03/27/18 documented as of this encounter
--- OUTSIDE RECORDS SUMMARY | 2024-12-24 11:04 | XMS_ITS | Clinical Summary ---
Author Organization [facility] Address [address] [facility] [place] [address] Care Team Providers Care Community Association Manager Name Role Phone Vernon Avalos DO Primary Care Provider [phone] Source Comments [facility]non-owned Affiliates and Associated Physician Practices is amultiple site organization consisting of ambulatory clinics and hospital sitesin [place], [place], [place] and [place]. This disclosure is being madepursuant to the Care Everywhere program and may not contain all information available regarding this patient. Last updated 17.[facility] Allergies No known active allergies Medications * Be aware that medications may not be up to date on this document. Alwaysverify current medications with the patient. betamethasone dipropionate (DIPROSONE) 0.05 % ointmentIndicati ons:Psoriasis vulgaris Apply to trunk/extremitie s 1-2 times daily. 30 DS. 45 g 11 9 Active selenium sulfide (SELSUN) 2.5 % lotionIndication s:Psoriasis vulgaris Wash into scalp and allow to sit for 3 minutes before rinsing. 30 DS. 120 mL 11 9 Active Additional Information Patient not taking.Reported on 08/17/2018 folic acid (FOLVITE) 1 MG tabletIndication s:Other psoriasis Take 1 tablet by mouth once daily Take 1 daily except the day you take methotrexate 90 tablet 3 9 Active methotrexate 2.5 MG tabletIndication s:Psoriasis Take 6 tablets by mouth every 7 days Reasons: Psoriasis 24 tablet 2 9 Active Active Problems Problem Noted Date Diagnosed [...] Done Comments LIPID TESTING 1983 MAMMOGRAM 1983 HIV SCREENING 08/08/1998 DTAP/TDAP/TD VACCINES (1 - Tdap) 08/08/2002 HEPATITIS B VACCINE (1 of 3 - 19+ 3-dose series) 08/08/2002 HPV VACCINE (1 - 3-dose SCDM series) 08/08/2010 DEPRESSION SCREENING 02/22/2024 COVID-19 VACCINE (1 - 2023-2 5 season) 2024 INFLUENZA VACCINE (#1) 2024 ZOSTER VACCINE (1 of 2) 08/08/2033 HEPATITIS [...] a test for HCV RNA (test code 60795) is suggested. For additional information please refer to http://education.Fresh !/faq/AEE50l1 (This link is being provided for informational/ educational purposes only.) Test Performed at: [facility] [id number] [place] [address] ROMEO WAGNER DO,MPH 05/25/2018 1:01 PM CDT 05/25/2018 1:01 PM CDT Berta Giron MD LAB - CHEMISTRY ORDERABLES Final Result [facility] [address] [place] [address] from Last 3 Months or Most Recently Relevant to Health Maintenance [place] [address] [place] [address] [place] [id number] [facility] Care Teams Community Association Manager Relationship Specialty Start Date End Date Vernon Avalos DO PCP - General 03/27/18
--- OUTSIDE RECORDS SUMMARY | 2024-12-24 11:04 | XMS_ITS | Encounter Summary ---
Author Organization [facility] Address [address] [facility] [address] [place] [address] Phone Care Team Providers Care Cat Skinner Name Role Phone Vernon Avalos DO Unavailable Vernon Avalos DO Primary Care Provider Kenneth Pineda MD Unavailable Encounter Details Date Type Department Care Team (Late st Contact Info) Description 12/06/2024 Results Follow-Up [facility] Medicine Surgery [address] [place] [address] Minda Gaytan PA [address] [facility] [place] [phone] [place] [address] Screening Mammogram Bilateral W [place] Social History Tobacco Use Types Packs/Day Years Used Date Smoking Tobacco: Every Day Comments No Sex and Gender Information Value Date Recorded Sex Assigned at Not on file Legal Sex Female 11:53 AM TRANSPORT CONDUCTOR Gender Identity Not on file Sexual Orientation Not on file documented as of this encounter Plan of Treatment Not on file documented as of this encounter Visit Diagnoses Not on filedocumented in this encounter Care Teams Cat Skinner Relationship Specialty Start Date End Date Vernon Avalos DO PCP - General 07/20/16 Vernon Avalos DO 06/22/16 Kenneth Pineda MD [address] [place] [address] Referring Physician Obstetrics and Gynecology 12/20/22 documented as of this encounter
[2024-12-24 13:14] LABS: Hematocrit 47.1 % (37.0-47.0); Hemoglobin 15.1 g/dL (12.0-15.0); Immature Granulocyte Percent A 0.3 % (0-0.5); Lymphocytes Absolute Auto 1.62 K/mm3 (0.9-3.2); Mean Corpuscular HGB Conc 32.1 g/dl (32-36); Mean Corpuscular Hemoglobin 28.8 pg (26-34); Mean Corpuscular Volume 89.9 fl (80-100); Nucleated Red Blood Cells Absolute Auto 0.000 K/mm3 (0.0-0.012); Nucleated Red Blood Cells Perc 0.0 % (0.0-0.2); Platelet Count Result 258 k/mm3 (150-375); Red Blood Count 5.24 M/mm3 (4.2-5.4); White Blood Count 6.1 K/mm3 (4.5-10.0)
[2024-12-24 13:16] LABS: Alanine Aminotransferase 28 U/L (6-35); Albumin Level 4.6 g/dL (3.5-5.1); Alkaline Phosphatase 60 U/L (38-126); Anion Gap 8 mmol/L (4-12); Aspartate Amino Transferase 44 U/L (14-36); Bilirubin,Total 0.5 mg/dL (0.2-1.3); Blood Urea Nitrogen 11 mg/dL (7-17); Calcium 9.4 mg/dL (8.4-10.2); Carbon Dioxide 26 mmol/L (22-30); Chloride 103 mmol/L (98-107); Cholesterol 188 mg/dL (0-200); Estimated Glomerular Filt Rate > 60; Glucose 84 mg/dL (65-110); HDL Direct 67 mg/dL; Potassium 4.1 mmol/L (3.4-5.0); Sodium 137 mmol/L (137-145); Total Protein 8.1 g/dL (6.3-8.2); Triglycerides 59 mg/dL (<150)
[2024-12-24 13:44] LABS: Thyroid Stimulating Hormone 1.240 uIU/mL (0.465-4.680)
[2024-12-24 14:28] LABS: Vitamin B12 389.0 pg/mL (239-931)
== END 2024-12-24 10:07 | disposition home or self-care (01) ==
LOC: ANHGOSHLAB 10:07
PROVIDERS: Visit Provider Nurse Practitioner
DX: Z13.220 Encounter for screening for lipoid disorders (principal); Z13.29 Encounter for screening for other suspected endocrine disorder; E55.9 Vitamin D deficiency, unspecified; E78.5 Hyperlipidemia, unspecified; R53.83 Other fatigue
CPT/HCPCS: 36415; 80053; 80061; 82172; 82306; 82607; 82746; 84443; 85025